=== PATIENT | female | born 1960 | race Caucasian/White ===

== ENCOUNTER 2021-10-25 09:24 | Inpatient (IN) | payer BC ==
[~2021-10-25] VITALS: Ht 157.5 cm; Wt 69.0 kg
[2021-10-25 11:05] VITALS: BP 126/72
[2021-10-25] MEDS ORDERED: midazolam 1 mg/ML 2ml injection ONE ×2 (12:32→13:57)
[2021-10-25] MEDS ORDERED: verapamil 2.5 mg/ml inj IV ONE (12:32)
[2021-10-25] MEDS ORDERED: heparin 1,000unit/ml 10ml vial 10 ML ONE (12:33)
[2021-10-25] MEDS ORDERED: LIDOcaine 1% (10mg/ml)w/preservative inj. 20ml MDV ONE (12:33)
[2021-10-25] MEDS ORDERED: fentaNYL/PF 50MCG/1 ML 2ML syringe ONE (12:33)
[2021-10-25] MEDS ORDERED: nitroGLYCERIN-Tridil 50MG/D5W 250 ML IV ONE (12:33)
[2021-10-25] MEDS ORDERED: iohexol 350MG/ML 100ml bottle IV ONE (12:33)
[2021-10-25] MEDS ORDERED: hydrocortisone sod succ/PF 100mg/2ml inj. ONE (13:20)
[2021-10-25] MEDS ORDERED: diphenhydrAMINE 50 mg/ml inj ONE (13:20)
[2021-10-25] MEDS ORDERED: famotidine/PF 10 mg/ml inj IV ONE (13:21)
[2021-10-25 14:26] LABS: BASOPHILS % (AUTO) 0.7 % (0-1); EOSINOPHILS # (AUTO) 0.4 X10'3 (0-0.9); EOSINOPHILS % (AUTO) 7.4 % (0-6); LYMPHOCYTES # (AUTO) 1.6 X10'3 (1.1-4.8); LYMPHOCYTES % (AUTO) 33.4 % (21-51); MEAN CORPUSCULAR HEMOGLOBIN 34.4 PG (27.0-31.0); MEAN CORPUSCULAR HGB CONC 34.3 g/dL (33.0-36.5); MEAN CORPUSCULAR VOLUME 100.4 FL (78-98); MEAN PLATELET VOLUME 7.4 FL (7.4-10.4); MONOCYTES # (AUTO) 0.6 X10'3 (0-0.9); MONOCYTES % (AUTO) 13.3 % (2-12); NEUTROPHILS # (AUTO) 2.2 X10'3 (1.8-7.7); NEUTROPHILS % (AUTO) 45.2 % (42-75); PLATELET COUNT 214 X10'3 (140-440); RED BLOOD COUNT 4.09 X10'6 (4.20-5.60); RED CELL DISTRIBUTION WIDTH 12.5 % (11.5-14.5); WHITE BLOOD COUNT 4.8 X10'3 (4.5-11.0)
[2021-10-25 14:34] LABS: APTT 28 SECONDS (22-32)
[2021-10-25 14:39] LABS: ALANINE AMINOTRANSFERASE 54 U/L (12-78); ALBUMIN 3.7 G/DL (3.4-5.0); ALBUMIN/GLOBULIN RATIO 1.2 (1.1-1.5); ALKALINE PHOSPHATASE 55 IU/L (46-116); ANION GAP 12 (8-16); ASPARTATE AMINO TRANSFERASE 33 U/L (10-37); BILIRUBIN,TOTAL 0.9 MG/DL (0.1-1.0); BLOOD UREA NITROGEN 8 MG/DL (7-18); BUN/CREATININE RATIO 12.3 (6.6-38.0); CHLORIDE 107 MMOL/L (99-107); CREATININE 0.65 MG/DL (0.40-0.90); GLUCOSE 84 MG/DL (70-104); POTASSIUM 3.4 MMOL/L (3.5-5.1); SODIUM 141 MMOL/L (135-145); TOTAL CARBON DIOXIDE 21.8 MMOL/L (24-32); TOTAL PROTEIN 6.9 G/DL (6.4-8.2); eGFR > 90 ML/MIN
[2021-10-25] MEDS ORDERED: HYDROcodone/acetaminophen 10/325mg tab PO PRN (14:45)
[2021-10-25] MEDS ORDERED: normal saline 1000ml 1,000 ML IV SCH (14:45)
[2021-10-25] MEDS ORDERED: proCHLORperazine 10 MG/2 ml inj IV PRN (14:45)
[2021-10-25] MEDS ORDERED: OXAZEpam 15mg capsule PO PRN (14:45)
[2021-10-25] MEDS ORDERED: ondansetron/PF 4mg/2ml inj IV PRN (14:45)
[2021-10-25] MEDS ORDERED: HYDROcodone/acetaminophen 5mg/325mg tablet PO PRN (14:45)
[2021-10-25 15:00] VITALS: BP 130/83
[2021-10-25 15:15] VITALS: BP 132/78
[2021-10-25 15:30] VITALS: BP 127/82
[2021-10-25 16:00] VITALS: BP 133/79
--- NOTE | 2021-10-25 17:54 | NUR ---
PATIENT RETURN BACK FROM CARDIAC CATH. RIGHT WRIST SITE INTACT, 3CC AIR REMOVE FOR TOTAL OF 12 CC AIR WITH SPECIAL SYRINGE. PAIN MED GIVEN FOR MILD DISCOMFORT FROM THE RT WRIST SITE. WITH GOOD EFFECT.VITALS REMAIN STABLE.TO BE DISCHARGE HOME AT 1800.
--- NOTE | 2021-10-25 18:49 | NUR ---
PATIENT MEDICALLY STABLE . DISCHARGE HOME WITH NO DISTRESS. ALL PATIENT BELONGING RETURNED.
== END 2021-10-25 18:06 | disposition home or self-care (01) | DRG 287 ==
LOC: PCU 3S 09:24 → OBSVTOIN 09:24 → INTOOBSV 09:24
PROVIDERS: ADMIT Internal Medicine Interventional Cardiology; ATTEND Internal Medicine Interventional Cardiology
PROC: 4A023N7 Measurement of Cardiac Sampling and Pressure, Left Heart, Percutaneous Approach (ICD-10-PCS; principal; 2021-10-25)
PROC: B2111ZZ Fluoroscopy of Multiple Coronary Arteries using Low Osmolar Contrast (ICD-10-PCS; 2021-10-25)
DX: I20.0 Unstable angina (principal); E03.9 Hypothyroidism, unspecified; L40.50 Arthropathic psoriasis, unspecified
CPT/HCPCS: 36415; 80053; 85025; 85610; 85730; 93458; 99152; A4620; A5120; C1769; C1894; G0378; J1200; J1644; J1720; J2250; J3010; J3490; J7030; Q9967